=== PATIENT | female | born 1935 | race Caucasian/White ===

== ENCOUNTER → 2016-03-04 | Outpatient (CLI) | payer OTHER, MEDICARE ==
--- NOTE | 2016-03-04 10:51 | DX ---
CHEST, PA and lateral HISTORY: Low O2 sat with exercise, R09.02, Recent echocardiography in January revealed a normal ejec tion fraction. COMPARISON: April 04, 2012 FINDINGS: There is new cardiomegaly. The pulmonary vascularity is not plethoric. There is no pulmonar y edema or pleural effusion formation. There is no pneumonia or atelectasis. There is stable anterior bridging osteophyte formation at T10-T11. Impression: New cardiomegaly. Results discussed with Sheela Childs MD at 10:46 AM.
== END ==
LOC: BRMIMAGING 10:01
PROVIDERS: ATTEND Internal Medicine Cardiovascular Disease
DX: R09.02 Hypoxemia (principal); I51.7 Cardiomegaly
CPT/HCPCS: 71020-PO

== ENCOUNTER → 2016-05-13 | Outpatient (CLI) | payer OTHER, MEDICARE | LOC: BRMIMAGING 08:23 | PROVIDERS: ATTEND Internal Medicine | DX: Z13.820 Encounter for screening for osteoporosis (principal); M85.80 Other specified disorders of bone density and structure, unspecified site; E83.52 Hypercalcemia ==

== ENCOUNTER → 2016-05-21 | Outpatient (CLI) | payer OTHER, MEDICARE | LOC: FIMAGING 09:21 | PROVIDERS: ATTEND Internal Medicine | DX: I70.8 Atherosclerosis of other arteries (principal); I10 Essential (primary) hypertension ==

== ENCOUNTER → 2017-10-29 | Outpatient (CLI) | payer OTHER, MEDICARE | LOC: BHFA 09:15 | PROVIDERS: ATTEND Internal Medicine Cardiovascular Disease | DX: I05.9 Rheumatic mitral valve disease, unspecified (principal); I10 Essential (primary) hypertension; I25.10 Atherosclerotic heart disease of native coronary artery without angina pectoris ==

== ENCOUNTER 2018-05-10 10:00 | Observation (INO) | payer OTHER, MEDICARE ==
[2018-05-10] MEDS ORDERED: NS 1,000 ML IV ONE (10:27)
--- NOTE | 2018-05-10 10:33 | CPEKG ---
Test Reason : OPEN Blood Pressure : / mmHG Vent. Rate : 051 BPM Atrial Rate : 050 BPM P-R Int : 166 ms QRS Dur : 087 ms QT Int : 462 ms P-R-T Axes : 116 -05 028 degrees QTc Int : 426 ms Sinus rhythm Confirmed by Benjamin Marsh ([id number]) on 05/10/2018 10:32:50 AM Referred By: Benjamin Marsh Confirmed By:Benjamin Marsh
--- NOTE | 2018-05-10 10:33 | EDPHY ---
H & P Stated Complaint: treadmill in cardiac rehab this am/had episode of blurry vision/now resolve Time Seen by Provider: 05/10/18 10:18 HPI/ROS: CHIEF COMPLAINT: Blurry vision now resolved HISTORY OF PRESENT ILLNESS: The patient is an 82-year-old female who had a single stent placed in March and has been doing cardiac rehab since. Today after her rehab exercises she had a brief episode of blurry vision. She is not sure if it was 1 eye or both. It resolved after a few minutes but then returned 2 more times while she was at home. She came here with her concern for possible TIA. She is currently on Plavix. She denies headache. She denies chest pain or shortness of breath. He denies neck stiffness. No abdominal pain. No nausea vomiting. No recent fevers or illness. She states that her vision is completely back to baseline now. Her vision loss was not painful. She thinks she may have had some double vision at some point. No dizziness or lightheadedness. She does not think it was her heart. Severity: Moderate Modifying factors: Resolved spontaneously REVIEW OF SYSTEMS: Constitutional: denies: chills, fever, recent illness, recent injury EENTM: denies: blurred vision, double vision, nose congestion Respiratory: denies: cough, shortness of breath Cardiac: denies: chest pain, irregular heart rate, lightheadedness, palpitations Gastrointestinal/Abdominal: denies: abdominal pain, diarrhea, nausea, vomiting, blood streaked stools Genitourinary: denies: dysuria, frequency, hematuria, pain Musculoskeletal: denies: joint pain, muscle pain Skin: denies: lesions, rash, jaundice, bruising Neurological: denies: headache, numbness, paresthesia, tingling, dizziness, weakness Hematologic/Lymphatic: denies: blood clots, easy bleeding, easy bruising Immunologic/allergic: denies: HIV/AIDS, transplant 10 systems reviewed and negative except as noted EXAM: GENERAL: Well-appearing, well-nourished and in no acute distress. HEAD: Atraumatic, normocephalic. EYES: Pupils equal round and reactive to light, extraocular movements intact, sclera anicteric, conjunctiva are normal. Retinal exam difficult but appears normal. Vision 40/20 in each eye which is her baseline. ENT: TMs normal, nares patent, oropharynx clear without exudates. Moist mucous membranes. NECK: Normal range of motion, supple without lymphadenopathy or JVD. LUNGS: Breath sounds clear to auscultation bilaterally and equal. No wheezes rales or rhonchi. HEART: Regular rate and rhythm without murmurs, rubs or gallops. ABDOMEN: Soft, nontender, normoactive bowel sounds. No guarding, no rebound. No masses appreciated. BACK: No CVA tenderness, no spinal tenderness, step-offs or deformities EXTREMITIES: Normal range of motion, no pitting or edema. No clubbing or cyanosis. NEUROLOGICAL: Cranial nerves II through XII grossly intact. Normal speech, normal gait. 5/5 strength, normal movement in all extremities, normal sensation , normal reflexes PSYCH: Normal mood, normal affect. SKIN: Warm, dry, normal turgor, no visible rashes or lesions. Source: Patient - Personal History Current Tetanus Diphtheria and Acellular Pertussis (TDAP): Yes Tetanus Vaccine Date: 2011 - Medical/Surgical History Hx Asthma: No Hx Chronic Respiratory Disease: No Hx Diabetes: No Hx Cardiac Disease: Yes Hx Renal Disease: No Hx Cirrhosis: No Hx Alcoholism: No Hx HIV/AIDS: No Hx Splenectomy or Spleen Trauma: No Other PMH: HTN cardiac stents - Family History Significant Family History: No pertinent family hx - Social History Smoking Status: Never smoked Alcohol Use: None Constitutional: Initial Vital Signs Temperature (C) 36.4 C 05/10/18 10:06 Heart Rate 54 L 05/10/18 10:06 Respiratory Rate 18 05/10/18 10:06 Blood Pressure 162/85 H 05/10/18 10:06 O2 Sat (%) 98 05/10/18 10:06 O2 Delivery Mode Room Air Allergies/Adverse Reactions: No Known Allergies Allergy (Verified 05/10/18 10:03) Home Medications: Medication Instructions Recorded Atenolol [Tenormin 50 mg (*)] 50 mg PO DAILY 05/03/13 Ascorbic Acid [Vitamin C 500 mg 500 mg PO DAILY 05/10/18 (*)] Aspirin [Aspirin 81mg (*)] 81 mg PO DAILY 05/10/18 Calcium Carbonate [Oyster Shell 500 mg PO DAILY 05/10/18 Calcium 500 mg (*)] Clopidogrel Bisulfate [Plavix (*)] 75 mg PO DAILY 05/10/18 Herbals/Supplements -Info Only 1 ea PO DAILY 05/10/18 Lisinopril [Zestril 10 mg (*)] 10 mg PO DAILY 05/10/18 Nitroglycerin [Nitrostat 0.4 mg 0.4 mg SL Q5M PRN 05/10/18 (*)] Rosuvastatin Calcium [Crestor 20mg 20 mg PO DAILY 05/10/18 (*)] Medical Decision Making - Diagnostics EKG Interpretation: An EKG obtained and was read and documented in trace view. Please see trace view for full reading and report. Sinus rhythm, bradycardic which she states is her baseline. Imaging Results: Imaging Impressions Brain MRI 05/10/18 10:28 Impression: 1. Extra-axial mass anteriorly in the right frontal lobe likely representing a meningioma. Recommend postcontrast imaging for further evaluation. 2. Moderate periventricular and deep hemispheric white matter change which is nonspecific and can be seen with small vessel ischemic disease. No evidence for acute infarct. Results called and discussed with Dr. Benjamin Marsh on 05/10/2018, 11:52. Carotid Doppler Study 05/10/18 10:28 Impression: No evidence of flow-limiting carotid stenosis. Mild to moderate partially calcified plaque right carotid bulb to proximal ICA minimal calcified plaque left carotid bulb without significant encroachment upon the lumen. Measurement of carotid stenosis is based on velocity parameters that correlate the residual internal carotid diameter with [place] Symptomatic Carotid Endarterectomy Trial (NASCET) based stenosis levels. Findings discussed with Benjamin Marsh M.D. at 12:23 hour, 05/10/2018. Imaging: Discussed imaging studies w/ order desk caller Radiologist ED Course/Re-evaluation: We discussed the hyponatremia. She recently discontinued triamterene in an effort to bring her sodium up. It seems to be persistently low. She states that she does use a low-sodium diet. I encouraged her to have a normal sodium diet. I spoke with Dr. Ramiro fernandes who will admit. MRIs done but results are pending. Carotid ultrasounds are being done currently. Differential Diagnosis: Partial list of the Differential diagnosis considered include but were not limited to; TIA, electrolyte abnormality, dehydration and although unlikely based on the history and physical exam, I also considered acute coronary disease , arrhythmia, infection. - Data Points Laboratory Results: Laboratory Results 05/10/18 10:24 05/10/18 10:24 05/10/18 05/10/18 05/10/18 10:31 10:24 10:24 WBC RBC Hgb Hct MCV MCH MCHC RDW Plt Count MPV Neut % (Auto) Lymph % (Auto) [place] % (Auto) Eos % (Auto) Baso % (Auto) Nucleat RBC Rel Count Absolute Neuts (auto) Absolute Lymphs (auto) Absolute Monos (auto) Absolute Eos (auto) Absolute Basos (auto) Absolute Nucleated RBC Immature Gran % Immature Gran # Sodium 125 mEq/L L mEq/L (135-145) Potassium 3.8 mEq/L mEq/L (3.5-5.2) Chloride 92 mEq/L L mEq/L (97-110) Carbon Dioxide 22 mEq/l mEq/l (22-31) Anion Gap 11 mEq/L mEq/L (6-14) BUN 12 mg/dL mg/dL (7-23) Creatinine 0.9 mg/dL mg/dL (0.6-1.0) Estimated GFR 60 Glucose 92 mg/dL mg/dL (70-100) Serum Osmolality 266 mosmo/kg L mosmo/kg (280-297) Calcium 10.8 mg/dL H mg/dL (8.5-10.4) Phosphorus 3.5 mg/dL mg/dL (2.5-4.5) POC Troponin I 0.03 ng/mL ng/mL (0.00-0.08) 05/10/18 10:24 WBC 9.96 10^3/uL H 10^3/uL (3.80-9.50) RBC 4.30 10^6/uL 10^6/uL (4.18-5.33) Hgb 13.8 g/dL g/dL (12.6-16.3) Hct 39.5 % % (38.0-47.0) MCV 91.9 fL fL (81.5-99.8) MCH 32.1 pg pg (27.9-34.1) MCHC 34.9 g/dL g/dL (32.4-36.7) RDW 13.8 % % (11.5-15.2) Plt Count 313 10^3/uL 10^3/uL (150-400) MPV 9.0 fL fL (8.7-11.7) Neut % (Auto) 80.7 % H % (39.3-74.2) Lymph % (Auto) 11.8 % L % (15.0-45.0) [place] % (Auto) 6.2 % % (4.5-13.0) Eos % (Auto) 0.4 % L % (0.6-7.6) Baso % (Auto) 0.3 % % (0.3-1.7) Nucleat RBC Rel Count 0.0 % % (0.0-0.2) Absolute Neuts (auto) 8.03 10^3/uL H 10^3/uL (1.70-6.50) Absolute Lymphs (auto) 1.18 10^3/uL 10^3/uL (1.00-3.00) Absolute Monos (auto) 0.62 10^3/uL 10^3/uL (0.30-0.80) Absolute Eos (auto) 0.04 10^3/uL 10^3/uL (0.03-0.40) Absolute Basos (auto) 0.03 10^3/uL 10^3/uL (0.02-0.10) Absolute Nucleated RBC 0.00 10^3/uL 10^3/uL (0-0.01) Immature Gran % 0.6 % % (0.0-1.1) Immature Gran # 0.06 10^3/uL 10^3/uL (0.00-0.10) Sodium Potassium Chloride Carbon Dioxide Anion Gap BUN Creatinine Estimated GFR Glucose Serum Osmolality Calcium Phosphorus POC Troponin I Medications Given: Discontinued Medications Sodium Chloride (Ns) 1,000 mls @ 0 mls/hr IV ONCE ONE; Wide Open PRN Reason: Protocol Stop: 05/10/18 10:28 Last Admin: 05/10/18 10:37 Dose: 1,000 mls Point of Care Test Results: Chemistry 05/10/18 10:31 POC Troponin I 0.03 ng/mL ng/mL (0.00-0.08) Departure - Departure Disposition: [facility] Inpatient Acute Clinical Impression: Hyponatremia Condition: Fair
[2018-05-10 10:44] LABS: PLATELET COUNT 313 10^3/uL (150-400)
[2018-05-10] MEDS ORDERED: ONDANSETRON DISINTEGRATING 4 MG TAB PO PRN (13:18)
[2018-05-10] MEDS ORDERED: ONDANSETRON 4 MG/2 ML VIAL IVP PRN (13:18)
[2018-05-10] MEDS ORDERED: traMADol 50 MG TAB PO PRN (13:24)
[2018-05-10] MEDS ORDERED: hydrALAZINE 20 MG/ML VIAL IVP ONE (13:45)
[2018-05-10] MEDS ORDERED: NITROGLYCERIN 0.4 MG BTL SL PRN (14:12)
[2018-05-10] MEDS ORDERED: NS 1,000 ML IV SCH ×2 (14:15→20:30)
--- NOTE | 2018-05-10 14:28 | PDGENHP ---
History and Physical - Chief Complaint Blurry vision, diplopia - History of Present Illness 82 y/o female w/ recent stent placement x 1, HTN, and CAD presents today w/ c/o blurry and double vision. She was performing exercises during her cardiac rehab when she noticed blurry vision. As she was leaving the facility, she couldn't see the curb. It resolved within a few minutes however when she was home, she noticed she had double vision. She wears glasses and glasses were on during these times. Denies headaches, lightheadedness, palpitations, nausea, CP. She also mentioned when she was in the hospital (Apr 08, 2018) for her stent placement, she had "psychedelic waves" in her vision and she thought it was caused from the medications they had given her. She recently had shingles and since that time, believes she walks differently. Brain MRI w/o contrast show evidence of an extra-axial mass measuring 2.5cm anteriorly in the right frontal lobe likely representing a meningioma. She is being admitted for further work-up, treatment and monitoring. History Information - Allergies/Home Medication List Allergies/Adverse Reactions: No Known Allergies Allergy (Verified 05/10/18 10:03) Home Medications: Atenolol [Tenormin 50 mg (*)] 50 mg PO DAILY 05/03/13 [Last Taken 05/10/18] Ascorbic Acid [Vitamin C 500 mg (*)] 500 mg PO DAILY 05/10/18 [Last Taken Unknown] Aspirin [Aspirin 81mg (*)] 81 mg PO DAILY 05/10/18 [Last Taken 05/10/18] Calcium Carbonate [Oyster Shell Calcium 500 mg (*)] 500 mg PO DAILY 05/10/18 [ Last Taken Unknown] Clopidogrel Bisulfate [Plavix (*)] 75 mg PO DAILY 05/10/18 [Last Taken 05/10/18] Herbals/Supplements -Info Only 1 ea PO DAILY 05/10/18 [Last Taken Unknown] Lisinopril [Zestril 10 mg (*)] 10 mg PO DAILY 05/10/18 [Last Taken 05/10/18] Nitroglycerin [Nitrostat 0.4 mg (*)] 0.4 mg SL Q5M PRN 05/10/18 [Last Taken Unknown] Rosuvastatin Calcium [Crestor 20mg (*)] 20 mg PO DAILY 05/10/18 [Last Taken ] I have personally reviewed and updated: family history, medical history, social history, surgical history - Past Medical History coronary artery disease, hypertension, hyperlipidemia Additional medical history: Basal cell carcinoma - benign (Fall 2017) - on nose. Carotid arterial disease. Shingles (she received the Shingles vaccine approx 4 years ago) - Surgical History Reports: coronary stent (x 1 to her RCA; performed at [facility] by Dr. Bonilla Caceres) Additional surgical history: Breast biopsy (~30 years ago, benign) - Family History Positive for: cancer (Brothers w/ cancer: stomach, throat, pancreatic), renal disease, CAD, hypertension - Social History Smoking Status: Never smoked Alcohol Use: None Drug Use: None Additional social history: , lives in [place]. Enjoys hiking, walking, gardening Review of Systems Review of Systems: ROS: 10pt was reviewed & negative except for what was stated in HPI & below Physical Exam Physical Exam: Lab data and imaging were reviewed. WBC: 9.96 Na: 125 BUN/Cr: 12/0.9 Trop: 0.03 Brain MRI: see HPI but in addition, moderate periventricular and deep hemispheric white matter change which is nonspecific and can be seen w/ small vessel ischemic disease. No evidence for acute infarct. EKG: SR Dopper carotid: no evidence of flow-limiting carotid stenosis Temp Pulse Resp BP Pulse Ox 36.6 C 55 L 12 219/97 H 96 05/10/18 12:40 05/10/18 12:40 05/10/18 12:40 05/10/18 13:19 05/10/18 12:40 Constitutional: no apparent distress, appears nourished, not in pain Eyes: PERRL, anicteric sclera, EOMI Ears, Nose, Mouth, Throat: moist mucous membranes, hearing normal, ears appear normal, no oral mucosal ulcers Cardiovascular: regular rate and rhythym, no murmur, rub, or gallop, No edema Peripheral Pulses: 2+: dorsalis-pedis (R) (Radial 2+), dorsalis-pedis (L) ( Radial 2+) Respiratory: no respiratory distress, no rales or rhonchi, clear to auscultation Gastrointestinal: normoactive bowel sounds, soft, non-tender abdomen, no palpable masses Genitourinary: no bladder fullness, no bladder tenderness Skin: rash (Right lumbar/buttocks scabbed/red shingles rash) Musculoskeletal: full muscle strength, no muscle tenderness, normal joint ROM, no joint effusions Neurologic: AAOx3, sensation intact bilaterally, CN II-XII Intact Psychiatric: interacting appropriately, not anxious, not encephalopathic, thought process linear Lymph, Heme, Immunologic: no cervical LAD, no supraclavicular LAD Lab Data & Imaging Review 05/10/18 10:24 05/10/18 10:24 WBC 9.96 10^3/uL (3.80-9.50) H 05/10/18 10:24 RBC 4.30 10^6/uL (4.18-5.33) 05/10/18 10:24 Hgb 13.8 g/dL (12.6-16.3) 05/10/18 10:24 Hct 39.5 % (38.0-47.0) 05/10/18 10:24 MCV 91.9 fL (81.5-99.8) 05/10/18 10:24 MCH 32.1 pg (27.9-34.1) 05/10/18 10:24 MCHC 34.9 g/dL (32.4-36.7) 05/10/18 10:24 RDW 13.8 % (11.5-15.2) 05/10/18 10:24 Plt Count 313 10^3/uL (150-400) 05/10/18 10:24 MPV 9.0 fL (8.7-11.7) 05/10/18 10:24 Neut % (Auto) 80.7 % (39.3-74.2) H 05/10/18 10:24 Lymph % (Auto) 11.8 % (15.0-45.0) L 05/10/18 10:24 [place] % (Auto) 6.2 % (4.5-13.0) 05/10/18 10:24 Eos % (Auto) 0.4 % (0.6-7.6) L 05/10/18 10:24 Baso % (Auto) 0.3 % (0.3-1.7) 05/10/18 10:24 Nucleat RBC Rel Count 0.0 % (0.0-0.2) 05/10/18 10:24 Absolute Neuts (auto) 8.03 10^3/uL (1.70-6.50) H 05/10/18 10:24 Absolute Lymphs (auto) 1.18 10^3/uL (1.00-3.00) 05/10/18 10:24 Absolute Monos (auto) 0.62 10^3/uL (0.30-0.80) 05/10/18 10:24 Absolute Eos (auto) 0.04 10^3/uL (0.03-0.40) 05/10/18 10:24 Absolute Basos (auto) 0.03 10^3/uL (0.02-0.10) 05/10/18 10:24 Absolute Nucleated RBC 0.00 10^3/uL (0-0.01) 05/10/18 10:24 Immature Gran % 0.6 % (0.0-1.1) 05/10/18 10:24 Immature Gran # 0.06 10^3/uL (0.00-0.10) 05/10/18 10:24 Sodium 125 mEq/L (135-145) L 05/10/18 10:24 Potassium 3.8 mEq/L (3.5-5.2) 05/10/18 10:24 Chloride 92 mEq/L (97-110) L 05/10/18 10:24 Carbon Dioxide 22 mEq/l (22-31) 05/10/18 10:24 Anion Gap 11 mEq/L (6-14) 05/10/18 10:24 BUN 12 mg/dL (7-23) 05/10/18 10:24 Creatinine 0.9 mg/dL (0.6-1.0) 05/10/18 10:24 Estimated GFR 60 05/10/18 10:24 Glucose 92 mg/dL (70-100) 05/10/18 10:24 Serum Osmolality 266 mosmo/kg (280-297) L 05/10/18 10:24 Calcium 10.8 mg/dL (8.5-10.4) H 05/10/18 10:24 Phosphorus 3.5 mg/dL (2.5-4.5) 05/10/18 10:24 POC Troponin I 0.03 ng/mL (0.00-0.08) 05/10/18 10:31 Urine Osmolality 154 mosmo/kg (300-900) L 05/10/18 12:10 Ur Random Sodium 26 mEq/L (30-90) L 05/10/18 12:10 Assessment & Plan Plan: 82 y/o female w/ recent stent placement presents w/vision changes while enduring cardiac rehab session. Brain MRI revealing a suspected meningioma in right frontal lobe. Differential diagnoses include but not limited to: dehydration, TIA, CVA, hyponatremia, infection #Mass anteriorly in right frontal lobe: Approximately 2.5cm in size and likely meningioma. Hx of benign basal cell carcinoma, brothers w/multitude of different cancers. Symptomatic w/vision changes today as well as a few week ago w/ "psychedelic lines" in her vision during her hospital stay for her stent placement. -Neurosurgery and neurology to consult. Dr. Viramontes requesting brain MRI w/ contrast. -PT/OT to evaluate and treat -TSH pending #Blurry vision: etiology unclear. Possible from mass as stated above however mass is in unusual position to create vision changes like she is experiencing. Unknown if pressing on any vision-related components. Vision changes could be from hyponatremia as well. -Correcting hyponatremia and retrieving brain MRI w/contrast for further clarification #Hyponatremia s/p dehydration: Consistently low, stopped her triamterene last to help her sodium levels, she admits for the last 30 years she has had a low-sodium diet because of her hypertension. Na: 125, Serum Osm: 266/ Urine Osm: 154, Urine Na:26. -Received 1L NS in ED; cont IVF x 2 bags -Will recheck Na now. Do not want to increase Na too quickly, I would like to raise her Na 4-6 mEq/L within 24 hours. -Encourage fluids (juice) and salty foods -CBC/BMP in AM #Hypertensive urgency: Asymptomatic -One time dose of hydralazine IVP; cont to monitor; hydralazine PO PRN if sbp > 170 -Cont home BP meds in AM (atenolol, lisinopril) #RCA stent -On ASA and plavix #Recent shingles: Stopped her Valtrex last week. Continues to have moderate pain to where her healing rash is/scabbed - right lumbar/buttocks. -Use tylenol and tramadol for pain Diet: Regular Code:Full VTE ppx: SCDs, Lovenox subq Dispo: Admit to obs
[2018-05-10] MEDS ORDERED: hydrALAZINE 10 MG TAB PO PRN (14:50)
[2018-05-10] MEDS ORDERED: GADOBUTROL 10 ML VIAL IVP ONE (15:53)
--- NOTE | 2018-05-10 16:12 | HOSPPROG ---
Hospitalist Progress Note Assessment/Plan: 82F with acute onset blurry vision that has now resolved. hypertensive, mild RLE weakness in foot flexion Na 125, low Richard, UOsms MRI with multiple likely meningiomas, small SDH - discussed with patient A/P: 1. SDH - 3mm; nsg involved; SDU for Q2 neuro checks; BP per neuro; hold asa/ plavix 2. meningiomas - likely the cause of blurry vision given optic chiasm proximity 3. hypoNa - s/p 1L NS, Na improving with NS 4. htn - better after hydralazine; follow closely and continue home meds 5. CAD s/p stent 1 month ago; will need to d/w cards regarding holding asa/ plavix Patient seen and examined and discussed with Jacqueline Dennison NP. I agree with her H& P. 35 mins floor cc time managing SDH Objective: Vital Signs Temp Pulse Resp BP Pulse Ox 36.7 C 60 16 147/58 H 97 05/10/18 15:25 05/10/18 15:25 05/10/18 15:25 05/10/18 15:25 05/10/18 15:25 05/09/18 05/10/18 05/11/18 05:59 05:59 05:59 Intake Total 1999 Balance 1999 ICD10 Worksheet Patient Problems: Problems Problem Status Onset Hyponatremia Acute
[2018-05-10] MEDS: ACETAMINOPHEN 325 MG TAB PO PRN ×2 (17:01→22:38)
[2018-05-10] MEDS ORDERED: PROTOCOL POTASSIUM 1 DOSE MISC PRN (17:36)
[2018-05-10] MEDS ORDERED: POTASSIUM CL 20 MEQ PKT PO ONE (17:41)
--- NOTE | 2018-05-10 21:50 | GCON ---
[f rep st] CONSULTATION REASON FOR CONSULTATION: Newly found brain mass with blurry vision. HOSPITAL COURSE, HISTORY, MAJOR MEDICAL FINDINGS: The patient is an 82-year- old female who presented to [facility] emergency room after having a brief episode of blurry vision. She is not sure which eye that this occurred in. She did have a cardiac stent placed in March and has been on Plavix since that time. She has also noticed some headaches, but denies any loss of vision. She does have some baseline right lower extremity diffuse weakness and notes some paresthesias but has related that to possible prior shingles. She denies any loss of bowel or bladder control. Denies any left arm or leg numbness, tingling, or weakness. Denies any facial asymmetry. REVIEW OF SYSTEMS: Negative other than what is stated in the HPI. Please see for pertinent negatives and pertinent positives. PAST MEDICAL HISTORY: Significant for hypertension, history of cardiac stent placement in March. ALLERGIES: No known drug allergies. HOME MEDICATIONS: Include aspirin, atenolol, lisinopril, Plavix, and Valtrex. She was on triamterene, but this is recently discontinued due to hyponatremia. SOCIAL HISTORY: The patient lives locally here in [place]. She quit smoking approximately 50 years ago, and she occasionally has a glass of wine. FAMILY HISTORY: Patient does have a family history significant for prostate and bladder cancer in her brothers. PHYSICAL EXAM: VITALS: Her BP is elevated at 219/97. Her heart rate is 55. She is 96% on room air. Temperature is 36.6. GENERAL: Patient is in no acute distress. She is alert and oriented x3. She answers questions appropriately. Affect is appropriate for the given situation. NEUROLOGIC: Cranial nerves 2 through 12 are grossly intact. EOMI and PERRLA. The patient is at 5/5 and equal in her bilateral upper and bilateral lower extremities, including her deltoids, triceps, biceps, wrist flexors, extensors, interossei, intrinsic needle board repairer , iliopsoas, hamstrings, quadriceps, plantar flexion, dorsiflexion, EHL. LABORATORY DATA: Patient underwent a BMP, which demonstrates that her sodium was 125 this morning. Her other labs: Her chloride was 92. Her calcium was 10.8. Her serum osmolality was 266. DIAGNOSTIC REVIEW: Patient underwent a head CT, which demonstrated a right frontal lobe extra-axial mass, likely representing a meningioma. There is no contrast done on this MRI study. There is also evidence of moderate periventricular deep hemispheric white matter changes. There is no acute infarct noted. ASSESSMENT AND PLAN: The patient is an 82-year-old female who was brought into the emergency room for blurry vision. She states after that episode, she has not had any repeat blurry vision. She is having hypertensive emergency. She is admitted to Medicine. Will discuss further with nurse to make sure that this is being treated by the medicine team. Will defer to Medicine regarding her hyponatremia. Did discuss with the patient that the finding of this right frontal mass may be incidental, and her current symptoms may be attributed to her other etiologies. We will continue to observe the patient today to make sure she does not have any repeat episodes of blurry vision. Though she reports some subjective weakness in her right leg, there is none grossly detected on examination today. We discussed the natural course of potential meningiomas and that this can often require repeat imaging for surveillance monitoring. She also has a contrasted MRI pending, will follow up with study once resulted. This was discussed with Dr. Pranay Del Cid, who will see the patient later today as well. If there is any change in neurologic or motor exam , please notify Neurosurgery. /[id number] [id number]
[2018-05-11] MEDS ORDERED: hydrALAZINE 20 MG/ML VIAL IVP ONE (03:07)
[2018-05-11] MEDS: ACETAMINOPHEN 325 MG TAB PO PRN ×2 (03:55→10:34)
[2018-05-11 05:44] LABS: PLATELET COUNT 305 10^3/uL (150-400)
[2018-05-11] MEDS ORDERED: POTASSIUM CL 10 MEQ TAB PO ONE (07:39)
[2018-05-11 09:00] VITALS: BP 111/50
[2018-05-11] MEDS ORDERED: LISINOPRIL 10 MG TAB PO SCH (09:00)
[2018-05-11] MEDS ORDERED: ASCORBIC ACID 500 MG TAB PO SCH (09:00)
[2018-05-11] MEDS ORDERED: CLOPIDOGREL BISULFATE 75 MG TAB PO SCH (09:00)
[2018-05-11] MEDS ORDERED: ATENOLOL 50 MG TAB PO SCH (09:00)
[2018-05-11] MEDS ORDERED: ENOXAPARIN 40 MG/0.4 ML SYR SC SCH (09:00)
[2018-05-11] MEDS ORDERED: ROSUVASTATIN CALCIUM 20 MG TAB PO SCH (09:00)
[2018-05-11] MEDS ORDERED: ASPIRIN EC 81 MG TAB PO SCH (09:00)
--- NOTE | 2018-05-11 09:45 | NEUSURGPN ---
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 There was also evidence of a small 3mm SDH over the right frontal convexity that is probably chronic -Discussed with patient the plan to continue to monitor her symptoms and repeat imaging to follow her meningiomas. -Patient was transfer to the ICU for BP management and neurology consulted. Discussed possible cause of blurry visiona episode with neurology as a TIA. -Appreciate medicine management of hyponatremia -Discussed with rene Holder to restart Plavix/ASA given her recent cardiac stent placement -Please notify NS with any change in neuro/motor exam Imaging Impressions Head CT 05/11/18 05:00 Impression: 1. Stable to slight increase in right convexity subdural hematoma as previously described on MRI from 05/10/2018. Continued follow-up is suggested as clinically warranted. 2. Right frontal and right occipital extra-axial masses better visualized on MRI with mild mass effect on the right frontal lobe. Final results are concordant with initial interpretation. Preliminary report was communicated to the referring provider at 6:28 AM. CHAMP. Subjective: Denies any further episodes of blurry vision, headache, dizziness, weakness Objective: NAD A&Ox3 MAEx4 PERRLA EOMI CNI-XII grossly intact 5/5 and equal in BUE and BLE - Physician Discussed Patient with Dr.: Other (Nehemias) Neurosurgery Physical Exam - Vitals, I&O, Labs I and O 05/10/18 05/11/18 05/12/18 05:59 05:59 05:59 Intake Total 3150 Balance 3150 Weight 76.657 kg Intake: Oral (ml) 650 IV Infused (ml) 2500 Ns 1,000 ml @ 75 mls/hr 500 IV CONT BRENNAN Rx#: [id number] Other: Intake Quantity Yes Sufficient Number of Voids 1 Toilet 1 1 Number of Stools Toilet 1 Vital Signs Temp Pulse Resp BP Pulse Ox 36.8 C 73 22 H 111/50 L 95 05/11/18 07:52 05/11/18 07:52 05/11/18 07:52 05/11/18 08:59 05/11/18 07:52 Laboratory Results 05/11/18 05:19 05/11/18 05:19 ICD10 Worksheet Patient Problems: Problems Problem Status Onset Hyponatremia Acute
--- NOTE | 2018-05-11 11:17 | GCON ---
[f rep st] CONSULTATION NEUROLOGIC CONSULTATION REFERRING PHYSICIAN: Matthew Gupta MD HISTORY: The patient is an 82-year-old woman who I am asked to see in neurologic consultation regard ing complaints of blurred vision. A month ago, she had coronary stenting, and is on aspirin and Plav ix. She went to cardiac rehab yesterday and started to notice some nonspecific blurring of vision. She went home, which was relatively nearby, and still had some trouble seeing very clearly, and at so me point was noticing a bit of double vision. The total duration was probably 15 to 30 minutes perha ps. That has resolved. However, she came to the emergency room for evaluation and went through work up. She was not having any headache or focal numbness or weakness. Her neurologic exam was normal w hen she was seen. She was found to have sodium of 125. MRI revealed multiple meningiomas, and I naomi l detail that below. Carotid ultrasound did not reveal any hemodynamically significant stenoses. Wi th the differential consideration of TIA, she was admitted to the hospital for monitoring. She feels perfectly normal at this point some 24 hours after admission. Since meningiomas were ident ified on the brain MRI around the optic chiasm, that was thought to be a potential explanation. Spec ifically, she has meningiomas identified in the posterolateral aspect of the right occipital lobe at about 8 mm, in the posterior mary bárbara a 4 x 15 x 10 mm meningioma, a right anterior margin of the optic chiasm at 4.5 x 5.5 x 5 mm, and a right lateral margin optic chiasm lesion at 6.5 x 9 x 9 mm. There is evidence of a 3 mm right frontoparietal subdural hematoma, which is probably chronic in whit[place] ure. This is associated with some relative dural enhancement on the right compared to the left, and not causing significant compression. She has had no history of seizure. She does not notice any focal symptoms in the arms or legs. I re viewed the head CT from this morning, and do not see evidence of any increase in the right subdural f luid collection and no evidence of acute bleeding. PAST MEDICAL HISTORY: Notable for the recent stenting. She is followed in Cardiology by Dr. Caceres. There is a history of hypertension, hyperlipidemia, coronary disease, basal cell of the face, histo ry of shingles. FAMILY HISTORY: Negative for known meningiomas. There is history of stomach, throat, and pancreatic cancer, renal disease, coronary disease, and hypertension in the family. SOCIAL HISTORY: No smoking or alcohol. She is and lives in [place]. She stays physically active. REVIEW OF SYSTEMS: A 10-point review of systems completed and unremarkable except for that noted abo ve. PHYSICAL EXAM: VITAL SIGNS: The blood pressure is 166/65, respiratory rate 22, pulse 73, the temper ature is 36.8. GENERAL: She is well developed in no acute distress. EYES: Clear. NECK: Supple w ith no bruits or masses. CARDIAC: Regular rate and rhythm. No murmur. NEUROLOGIC EXAM: She is awake, alert, and attentive, with clear fluent speech and oriented to person , place, time, and general situation. Pupils 3 mm and reactive. Extraocular movements intact. No d iplopia elicited. Normal facial sensation and strength. Palate elevates symmetrically. Tongue prot rudes midline. Hearing is preserved. Motor exam reveals normal muscle bulk and tone with 5/5 streng th and no abnormal movement. Sensation is preserved for temperature and light touch. Reflexes are 2 + and symmetric. In addition to the imaging studies, laboratory studies reveal unremarkable CBC. Her sodium this morn ing is 131, otherwise normal electrolytes. IMPRESSION: Total unit time of 75 minutes. The patient has multiple problems to review. The 1st is this presentation of blurred vision and some diplopia. Differential considerations include TIA vers us transient mass-effect of meningiomas around the optic chiasm, which could cause blurring of vision or diplopia. It would be a little unusual for mass-effect to be transient and then resolve fully, s o TIA remains a differential consideration given her known multiple risk factors. Either way, sympto ms have resolved. She has an NIH Stroke Scale of 0. She is on appropriate, maximal medical therapy for secondary stroke prophylaxis using aspirin and Plavix, as well as statin therapy. She is also on antihypertensive therapy. The transient elevation of her blood pressure has come down, and she will be continue on her oral medications. Moving forward, despite seeing the small right subdural hemato ma with no acute blood, I would favor continuing aspirin and Plavix, and continuing to monitor her cl inical status and intermittent imaging depending on clinical symptoms. I informed them of what to wa [facility] for such as seizure activity or focal symptoms of numbness or weakness on the left side. She alina uld continue her regular followup with cardiology and primary care, but needs to have neurologic and neurosurgical followup over time. I have asked her to follow up with me in about a month. Neurosurg fareed has already seen her for consultation and recognize there is no role for acute intervention at is stage, but they can be available for assessment of meningiomas over time if there is growth on ser ial imaging. Because of the location of the meningiomas in the region of the optic chiasm, there rosalva ht need to be intervention eventually, although rate of growth will determine this. The right fronta l meningioma is the largest and is currently asymptomatic, but likewise, should be monitored for any enlargement. I would not recommend empiric treatment with anticonvulsants at this point. If all else is stable, she can be safely discharged with outpatient followup. Copy requested to: Dr. Caceres Cardiology, [facility] /[id number]/MODL
--- NOTE | 2018-05-11 12:02 | GDS ---
[f rep st] DISCHARGE SUMMARY ALL DIAGNOSES: 1. Blurry vision. 2. Multiple meningiomas. 3. Small subdural hematoma. 4. Hyponatremia. 5. Hypertension. 6. Coronary artery disease, status post stent placement 1 month ago. ALL CONSULTATIONS: 1. Neurosurgery, Dr. Del Cid. 2. Neurology, Dr. Chamorro. HOSPITAL COURSE: An 82-year-old female who presented after an episode of blurry vision, as well as d iplopia. This spontaneously resolved without intervention. Imaging showed multiple meningiomas, one close to the optic chiasm, as well as a small 3 mm subdural hematoma. Neurology and Neurosurgery bailey ve both been involved. Followup imaging the morning after admission showed likely stable subdural he matoma per neurosurgical interpretation. I have discussed extensively anti-platelet medications in t his setting, and both Neurology, as well as Neurosurgery feel comfortable restarting her aspirin and Plavix. The risk of holding these with the cardiac stent that was placed 1 month ago is quite signif icant. I have discussed this with the patient as well who is comfortable restarting these medicines. FOLLOWUP: 1. She will follow up with her primary care physician 6 days after discharge. Should follow up on h er sodium (which is corrected to 131), as well as any neurologic changes. Urine electrolytes indicat e that she was hypovolemic, her sodium corrected easily with normal saline. Should also follow up on her hypertension, I have told her that it is okay to double her lisinopril from 10 mg to 20 mg if sh e becomes significantly hypertensive. She is also taking atenolol. 2. Commercial Collector, Dr. Hickey for ongoing management post stent. As above, she has restarted her as pirin and Plavix. 3. Dr. Chamorro in 1 month for ongoing management of her neurologic changes. He feels as though th is may have been a TIA, though presentation is not entirely clear. 4. Dr. Del Cid in 2 to 3 months for ongoing management of her meningiomas. He plans to order an MRI at that point. /[id number]/MODL
--- NOTE | 2018-05-11 12:09 | ASDISCHSUM ---
Discharge Information Plan Status:Home with No Needs Medically Cleared to Leave:05/11/2018 Discharge Date:05/11/2018 11:56 AM CM D/C Disposition:Home, Routine, Self-Care ADT D/C Disposition:Home, Routine, Self-Care Projected Discharge Date:05/11/2018 11:56 AM Transportation at D/C:Family Discharge Delay Reason: Follow-Up Date:05/11/2018 11:56 AM Discharge Slot: Final Diagnosis: Placement Information Patient Contact Information Contact Name:HIEN Relationship: Address:[address] [place] [address] Work Phone: City:[facility] Phone: State/Zip Code:[place] [address] Email: Financial Information Financial Class:Medicare Primary Plan Desc:MEDICARE OUTPATIENT Primary Plan Number:[id number] Secondary Plan Desc:JOSELIN/WENCESLAO SUPPLEMENT Secondary Plan Number:[id number] Assessment Information LACE LACE Length of stay for Answers: Less than 1 day current admission Acuity / Level of Answers: No Care: Did the patient have an inpatient admission? Comorbidities - select Answers: Coronary Artery Disease all that apply Opioid dependence / Chronic pain Other Notes: HTN; HLD # of Emergency department Answers: 1-2 visits in the last 6 months Score: 8 Date Signed: 05/11/2018 12:08 PM Electronically Signed By:BRANDON Jama Case Management Discharge Plan Note Case Management Discharge Discharge Order Complete? Answers: Yes Patient to Obtain Answers: via Family Medications Transportation Arranged Answers: Family/Friends Discharge Comments Notes: Pt care discussed in rounds, pt admitted under obs and was discharged independently with support of and follow-up as indicated. No CM needs identified. Date Signed: 05/11/2018 12:07 PM Electronically Signed By:BRANDON Jama Intervention Information
== END 2018-05-11 11:56 | disposition home or self-care (01) ==
LOC: F3E 12:37 → F2N 19:26
PROVIDERS: ADMIT Student in an Organized Health Care Education/Training Program; ATTEND Student in an Organized Health Care Education/Training Program
DX: H53.8 Other visual disturbances (principal); H53.2 Diplopia; R29.700 NIHSS score 0; I62.03 Nontraumatic chronic subdural hemorrhage; E87.1 Hypo-osmolality and hyponatremia; E87.6 Hypokalemia; E86.0 Dehydration; D32.0 Benign neoplasm of cerebral meninges; I25.10 Atherosclerotic heart disease of native coronary artery without angina pectoris; Z95.5 Presence of coronary angioplasty implant and graft; Z79.02 Long term (current) use of antithrombotics/antiplatelets; Z79.82 Long term (current) use of aspirin; I10 Essential (primary) hypertension; I16.0 Hypertensive urgency
CPT/HCPCS: 70450; 70551; 70552; 93005; 93880; 96361; 96374; 96375; 97161; 99285; A9585; G0378; J0360; 84484-ER